=== PATIENT | male | born 1945 | race Caucasian/White ===

== ENCOUNTER → 2019-08-10 06:00 | Outpatient (REF) | payer MEDICARE, SELFPAY | LOC: ANHLAB 06:00 | PROVIDERS: PCP Family Medicine; Visit Provider Nurse Practitioner Family | DX: C44.529 Squamous cell carcinoma of skin of other part of trunk (principal) | CPT/HCPCS: 88305; 88331 ==

== ENCOUNTER 2023-01-29 10:36 | Day surgery (SDC) | payer MEDICARE, SELFPAY ==
[2023-01-26 14:05] VITALS: BMI 28.3
--- NOTE | 2023-01-29 08:26 | WPDANESEPPF ---
Anes - Initial Pre Proc Eval Procedure: Operation Date: 01/29/23 12:30 Proposed Procedures p Screening Colonoscopy - Alfredo Bess MD Date/Time: 01/29/23 08:26 Surgeon: Alfredo Bess MD Pre Op Diagnosis: Neoplasm Screening Patient Data Age: 77 Gender: M Height: 1.7 m Weight: 82 kg Allergies Allergy/AdvReac Type Severity Reaction Status Date / Time iodine Allergy Mild Rash Verified 01/29/23 11:13 penicillin G Allergy Mild Rash Verified 01/29/23 11:13 Penicillins Allergy Mild Rash Verified 01/29/23 11:13 escitalopram Allergy Unknown unknown Verified 01/26/23 13:43 lisinopril Allergy Unknown unknown Verified 01/26/23 13:42 Contrast Media Allergy Mild RASH/HOT Uncoded 01/26/23 13:43 Home Medications Medication Instructions Recorded Confirmed Type sildenafil 100 mg tablet (Viagra) 100 mg PO DAILY PRN sexual 02/26/22 01/29/23 Rx activity #30 tabs allopurinol 300 mg tablet 300 mg PO DAILY #90 tabs 08/28/22 01/29/23 Rx valsartan 160 1 tablet PO DAILY #90 tabs 08/28/22 01/29/23 Rx mg-hydrochlorothiazide 12.5 mg tablet (Diovan HCT) simvastatin 20 mg tablet 20 mg PO DAILY #90 tabs 11/02/22 01/29/23 Rx lorazepam 0.5 mg tablet 0.5 mg PO TID PRN anxiety #270 tabs 01/01/23 01/29/23 Rx metoprolol tartrate 25 mg tablet 25 mg PO .HS #90 tabs 01/01/23 01/29/23 Rx zolpidem 10 mg tablet 10 mg PO .once daily at hs PRN 01/01/23 01/29/23 Rx insomnia #90 tabs sodium,potassium,mag sulfates 17.5 See Rx Instructions PO .COMPLEX 01/23/23 01/29/23 Rx gram-3.13 gram-1.6 gram oral soln #354 mL (Suprep Bowel Prep Kit) multivitamin 1 tablet PO DAILY 01/26/23 01/29/23 History probenecid 500 mg-colchicine 0.5 1 tablet PO DAILY 01/26/23 01/29/23 History mg tablet Patient hx anesthesia problems: none Family hx anesthesia problems: none Results Review: All pre-operative results and documents have been reviewed as part of the pre-operative evaluation. COUNT INCLUDES THE [facility] Past Medical History Medical History Anxiety Erectile dysfunction H/O: gout HLD (hyperlipidemia) HTN (hypertension) Insomnia Kidney stone Family History Family History Mother Family history of neuropathy Social History Social History Smoking status: Never smoker Second hand tobacco smoke exposure: No Alcohol intake: never Alcohol use details: 2 drinks per month. Substance use: never Substance use type: does not use Lack of Transportation: No Lack of Food: Never True Current Housing: I Have Housing Concerned About Future Housing: No Difficulty Paying Gas/Electric Bills: No Difficulty Paying for Meds: No Currently Unemployed: No Education: High School Diploma/GED Difficulty w/ Childcare or Family Care: No Living arrangements: with family Occupation/Education: retired Gender identity (if verbalized by the patient): Male Sexual Orientation (if Verbalized by the Patient): Straight or Heterosexual Spiritual care concerns: No Agree to blood products: Yes Anes - Eval Final PreProcedure Day of Procedure 01/29/23 08:26 Patient weight: overweight Heart: regular rate and rhythm Lungs: clear to auscultation Airway: Mallampati scale class II Neurological: alert and oriented Last oral intake: >/= 8 hours ASA classification: II Emergent: no Anesthetic plan: proceed Anesthesia type and monitoring: general GIVS and standard monitoring Results Review: All pre-operative results and documents have been reviewed as part of the pre-operative evaluation. Informed Consent: The patient's anesthetic plan and its attendant risks and benefits were discussed with the patient/family/POA. Questions were solicited and answers provided to the satisfaction of the patient/family/POA.
[2023-01-29 11:15] VITALS: BP 180/72; PULSE 51; RESP 20; TEMP 36.7; O2SAT 99
[2023-01-29] MEDS: LACTATED RINGERS 1,000 ML 150 ML IV CONT (11:30)
--- NOTE | 2023-01-29 12:14 | PM.HPGS ---
History of Present Illness History of Present Illness Consent: Risks, benefits, and alternatives have been discussed and questions answered. Patient agrees to proceed with procedure. Chief complaint: Neoplasm Screening Narrative: Cortez Willis is a 77 year old male Presents for screening colonoscopy. Patient's current weight appetite and bowel movements are normal. Patient denies abdominal pain. He has had no bleeding. Family history noncontributory. Previous colonoscopy 25 years ago apparently was unremarkable. Review of Systems Review of Systems: Review of systems noncontributory. [facility] Past Medical History Medical History Anxiety Erectile dysfunction H/O: gout HLD (hyperlipidemia) HTN (hypertension) Insomnia Kidney stone Family History Family History Mother Family history of neuropathy Social History Social History Smoking status: Never smoker Second hand tobacco smoke exposure: No Alcohol intake: never Alcohol use details: 2 drinks per month. Substance use: never Substance use type: does not use Lack of Transportation: No Lack of Food: Never True Current Housing: I Have Housing Concerned About Future Housing: No Difficulty Paying Gas/Electric Bills: No Difficulty Paying for Meds: No Currently Unemployed: No Education: High School Diploma/GED Difficulty w/ Childcare or Family Care: No Living arrangements: with family Occupation/Education: retired Gender identity (if verbalized by the patient): Male Sexual Orientation (if Verbalized by the Patient): Straight or Heterosexual Spiritual care concerns: No Agree to blood products: Yes Meds Home Medications and Allergies Home Medications Medication Instructions Recorded Confirmed Type sildenafil 100 mg tablet (Viagra) 100 mg PO DAILY PRN sexual 02/26/22 01/29/23 Rx activity #30 tabs allopurinol 300 mg tablet 300 mg PO DAILY #90 tabs 08/28/22 01/29/23 Rx valsartan 160 1 tablet PO DAILY #90 tabs 08/28/22 01/29/23 Rx mg-hydrochlorothiazide 12.5 mg tablet (Diovan HCT) simvastatin 20 mg tablet 20 mg PO DAILY #90 tabs 11/02/22 01/29/23 Rx lorazepam 0.5 mg tablet 0.5 mg PO TID PRN anxiety #270 tabs 01/01/23 01/29/23 Rx metoprolol tartrate 25 mg tablet 25 mg PO .HS #90 tabs 01/01/23 01/29/23 Rx zolpidem 10 mg tablet 10 mg PO .once daily at hs PRN 01/01/23 01/29/23 Rx insomnia #90 tabs sodium,potassium,mag sulfates 17.5 See Rx Instructions PO .COMPLEX 01/23/23 01/29/23 Rx gram-3.13 gram-1.6 gram oral soln #354 mL (Suprep Bowel Prep Kit) multivitamin 1 tablet PO DAILY 01/26/23 01/29/23 History probenecid 500 mg-colchicine 0.5 1 tablet PO DAILY 01/26/23 01/29/23 History mg tablet Allergies Allergy/AdvReac Type Severity Reaction Status Date / Time iodine Allergy Mild Rash Verified 01/29/23 11:13 penicillin G Allergy Mild Rash Verified 01/29/23 11:13 Penicillins Allergy Mild Rash Verified 01/29/23 11:13 escitalopram Allergy Unknown unknown Verified 01/26/23 13:43 lisinopril Allergy Unknown unknown Verified 01/26/23 13:42 Contrast Media Allergy Mild RASH/HOT Uncoded 01/26/23 13:43 Vital Signs Vital Signs - 24 hr 01/29/23 11:15 Temperature 98.1 F Pulse Rate 51 L Respiratory Rate 20 Blood Pressure 180/72 H Pulse Oximetry 99 Oxygen Delivery Room Air Exam Narrative: Physical exam reveals patient to be alert. Vital signs stable. HEENT exam is unremarkable. Patient is anicteric. Lungs are clear to auscultation and percussion. Heart is without murmur or extra sounds. Abdomen bowel sounds are present soft nontender with no organomegaly. Digital external rectal exam is normal. Assessment and Plan Assessment and plan (1) Encounter for screening colonoscopy: Code(s): Z12.11 - Encounter for screening
[2023-01-29 13:14] VITALS: BP 95/53; PULSE 45; RESP 16; O2SAT 98
[2023-01-29 13:24] VITALS: BP 110/64; PULSE 45; RESP 16; O2SAT 100
[2023-01-29 13:34] VITALS: BP 136/63; PULSE 47; RESP 16; O2SAT 99
--- NOTE | 2023-01-29 13:58 | WPDANESPN ---
Anes - Prog Note Post-Op Date/Time: 01/29/23 13:58 Cardiovascular status: normal Respiratory status: normal Airway patency: baseline Mental status: baseline Post-Op hydration status: normal Vital Signs: Last Vital Signs Temp 36.7 C 01/29/23 11:15 Pulse 47 L 01/29/23 13:34 Resp 16 01/29/23 13:34 BP 136/63 01/29/23 13:34 Pulse Ox 99 01/29/23 13:34 O2 Del Method Room Air 01/29/23 13:34 Pain Score (VAS): 0 I/O: Intake & Output 01/28/23 01/29/23 01/29/23 23:59 07:59 15:59 Intake Total 650 Balance 650 Post-procedural complaints: none Patient Feedback: Patient satisfied with anesthetic care. Other Findings: Patient vital signs back to baseline. Patient denies nausea and vomiting. Patient's pain under control. Patient OK for discharge.
== END 2023-01-29 13:56 | disposition home or self-care (01) ==
PROVIDERS: PCP Family Medicine; Visit Provider Internal Medicine Gastroenterology
PROC: 0DJD8ZZ Inspection of Lower Intestinal Tract, Via Natural or Artificial Opening Endoscopic (ICD-10-PCS; CPT 45378; principal; 2023-01-29 12:30)
DX: Z12.11 Encounter for screening for malignant neoplasm of colon (principal)
CPT/HCPCS: 45378

== ENCOUNTER 2025-02-24 02:06 | Day surgery (SDC) | payer MEDICARE, SELFPAY ==
[2025-02-23 15:58] VITALS: BMI 28.2
[2025-02-24] VITALS (21 sets, daily range): BP systolic 118–179; BP diastolic 58–93; PULSE 44–80; RESP 12–20; TEMP 36.1; O2SAT 93–100; BMI 29.0
--- OUTSIDE RECORDS SUMMARY | 2025-02-24 02:09 | XMS_ITS | Clinical Summary ---
Author Organization [facility] Address [address] [address] Phone Care Team Providers Care Accounting Administrative Assistant Name Role Phone Clotilde Webb MD Primary Care Provider [phone] Allergies Active Allergy Reactions Criticality Noted Date Comments Iodine Unknown 02/07/2025 Penicillins Rash 02/07/2025 Medications simvastatin (ZOCOR) 20 MG Tablet Take 20 mg by mouth every evening. Active valsartan-hydro CHLOROthiazide (DIOVAN-HCT) 160-12.5 MG Tablet Take 1 Tablet by mouth daily. Active metoprolol Succinate (TOPROL-XL) 25 MG TABLET SR 24 HR Take 25 mg by mouth daily. Active colchicine-prob enecid 0.5-500 MG Tablet Take 1 Tablet by mouth daily. Active allopurinol (ZYLOPRIM) 300 MG Tablet Take 300 mg by mouth daily. Active zolpidem (AMBIEN) 10 MG Tablet Take 10 mg by mouth nightly as needed. Active LORazepam (Ativan) 0.5 MG Tablet Take 0.5 mg by mouth every 6 hours as needed. Active sildenafil citrate (VIAGRA) 100 MG Tablet Take 100 mg by mouth as needed. Active Encounters Date Type Department Care Team Description 02/07/2025 9:00 AM CDT - 02/07/2025 11:59 PM CDT Hospital Encounter [facility] Nuclear Medicine [address] [place] [address] Clotilde Webb MD Discharge Disposition: Discharged to home or Selfcare 02/07/2025 8:19 AM CDT - 02/07/2025 8:59 AM CDT Hospital Encounter [facility] Cardiology Stress [address] [place] [address] Clotilde Webb MD Discharge Disposition: Discharged to home or Selfcare 02/07/2025 8:15 AM CDT - 02/07/2025 8:18 AM CDT Hospital Encounter [facility] Nuclear Medicine [address] [place] [address] Clotilde Webb MD Discharge Disposition: Discharged to home or Selfcare 02/07/2025 8:00 AM CDT - 02/07/2025 8:14 AM CDT Hospital Encounter [facility] Nuclear Medicine [address] [place] [address] Clotilde Webb MD Discharge Disposition: Discharged to home or Selfcare 02/06/2025 Travel 01/26/2025 Transcribe Orders [facility] Central Scheduling [address] [place] [address] Clotilde Webb MD Chest pain, unspecified type (Primary Dx) 01/26/2025 Transcribe Orders [facility] Central Scheduling [address] [place] [address] Clotilde Gross MD Chest pain, unspecified type (Primary Dx) from Last 3 Months Social History Tobacco Use Types Packs/Day Years Used Date Smoking Tobacco: Never Assessed Sex and Gender Information Value Date Recorded Sex Assigned at Not on file Legal Sex Male 11:53 PM CDT Gender Identity Not on file Sexual Orientation Not on file Last Filed Vital Signs Vital Sign Reading Time Taken Comments Blood Pressure 114/50 02/07/2025 9:04 AM CDT Pulse 67 02/07/2025 9:04 AM CDT Temperature - - Respiratory Rate - - Oxygen Saturation - - Inhaled Oxygen Concentration - - Weight 83.5 kg (184 lb) 02/07/2025 9:19 AM CDT Height 170.2 cm (5' 7) 02/07/2025 9:19 AM CDT Body Mass Index 28.82 02/07/2025 9:19 AM CDT Plan of Treatment Health Maintenance Due Date Last Done Comments Hepatitis C Virus (HCV) Screening 1945 TdaP Immunization 1945 Pneumococcal Immunization (5 0+ years) (1 of 1 - PCV) 1997 Zoster Immunization (1 of 2) 1997 Respiratory Syncytial Virus (RSV) Immunization (Adult) (1 - 1-dose 75+ series) 2022 SARS-COV-2 Immunization (1 - 2023- season) 2024 Influenza Immunization (Seas on Ended) 2025 Hepatitis B Immunization Aged Out No longer eligible based on patient's age to complete this topic Human Papillomavirus (HPV) Immunization Aged Out No longer eligible b ased on patient's age to complete this topic Meningococcal Immunization (ACWY) Aged Out No longer eligible based on patient's age to complete this topic Rotavirus Immunization Aged Out No lo nger eligible based on patient's age to complete this topic Procedures Procedure Name Priority Date/Time Associated Diagnosis Comments NM CARD MULTI SPECT WITH WALL MOTION AND EJECTION FRACTION Routine 02/07/2025 9:29 AM CDT Chest pain, unspecified type ADULT CV STRESS TREADMILL W NUC MED Routine 02/07/2025 9:06 AM CDT Chest pain, unspecified type from Last 3 Months Results * NM CARD MULTI SPECT WITH WALL MOTION AND EJECTION FRACTION (02/07/2025 9:29 AM CDT) Anatomical Region Laterality Modality CARDIO N/A Nuclear Medicine 02/07/2025 12:2 6 PM CDT Impressions 02/07/2025 12:29 PM CDT IMPRESSION: Small area of mildly reduced perfusion in the mid inferolateral region of the left ventricle at stress with partial improvement at rest. While diaphragmatic attenuation artifact could be contributing, the partial reversibility is suspicious for ischemia. Normal left ventricular ejection fraction of 71 %. Normal wall motion. Narrative 02/07/2025 12:29 PM CDT EXAM DESCRIPTION: NM CARD MULTI SPECT WITH WALL MOTION AND EJECTION FRACTION REASON FOR STUDY: Chest pain and shortness of breath with exertion for few months. RADIOPHARMACEUTICAL: Rest: 11.9 mCi Tc-99m tetrofosmin Exercise: 34.8 mCi Tc-99m tetrofosmin Injection site: Left antecubital vein IV site COMPARISON: None TECHNIQUE: Standard myocardial perfusion SPECT images were obtained after resting tracer injection. Subsequently, a treadmill exercise tolerance test was performed. The patient exercised for 9 minutes and 0 seconds and achieved 88 % of the age predicted maximum heart rate. Standard myocardial perfusion images were obtained after tracer injection at peak exercise. FINDINGS: Image quality is adequate at rest and adequate at stress. Small area diminished perfusion in the mid inferolateral region of the left ventricle at stress with improved perfusion at rest. The left ventricular cavity size is normal . Gated tomographic images demonstrate normal wall motion and wall thickening with a left ventricular ejection fraction of 71 % poststress (normal >45%). THIS IS AN ELECTRONICALLY VERIFIED FINAL REPORT 02/07/2025 12:26 PM - Electronically signed by Noah Tanner M.D. LB: JACINTA Report ID: [id number] Reading Location: [id number] Procedure Note Noah Tanner MD - 02/07/2025 EXAM DESCRIPTION: LA CARD MULTI SPECT WITH WALL MOTION AND EJECTION FRACTION REASON FOR STUDY: Chest pain and shortness of breath with exertion for few months. RADIOPHARMACEUTICAL: Rest: 11.9 mCi Tc-99m tetrofosmin Exercise: 34.8 mCi Tc-99m tetrofosmin Injection site: Left antecubital vein IV site COMPARISON: None TECHNIQUE: Standard myocardial perfusion SPECT images were obtained after resting tracer injection. Subsequently, a treadmill exercise tolerance test was performed. The patient exercised for 9 minutes and 0 seconds and achieved 88 % of the age predicted maximum heart rate. Standard myocardial perfusion images were obtained after tracer injection at peak exercise. FINDINGS: Image quality is adequate at rest and adequate at stress. Small area diminished perfusion in the mid inferolateral region of the left ventricle at stress with improved perfusion at rest. The left ventricular cavity size is normal . Gated tomographic images demonstrate normal wall motion and wall thickening with a left ventricular ejection fraction of 71 % poststress (normal >45%). THIS IS AN ELECTRONICALLY VERIFIED FINAL REPORT 02/07/2025 12:26 PM - Electronically signed by Noha Tanner M.D. LB: JACINTA Report ID: [id number] Reading Location: [id number] IMPRESSION: Small area of mildly reduced perfusion in the mid inferolateral region of the left ventricle at stress with partial improvement at rest. While diaphragmatic attenuation artifact could be contributing, the partial reversibility is suspicious for ischemia. Normal left ventricular ejection fraction of 71 %. Normal wall motion. us Clotilde Webb MD IMG NM CARDIAC NI ORDERABLES Dylan al Result * ADULT CV STRESS TREADMILL W NUC MED (02/07/2025 9:06 AM CDT) Anatomical Region Laterality Modality CARDIO N/A Electrocardiogra phy Narrative 02/07/2025 9:52 AM CDT Non-Imaging Stress Test Patient Name MIKE Bejarano 1945 Patient ID (UPI) [id number] Study Date02/07/2025 Type of Study: Non-Imaging Stress Test: Exercise. Conclusions Summary - Stress induced ischemia as EKG criteria (ST elevation of lead II, III aVF, V3-V6 with ST depression of Lead I and aVL) (peak heart rate of 127 BPM, 88% of the maximal age predicted heart rate, METs: 11.5, total time of Simón protocol was 9 min 37 seconds). - Nuclear images are reported separately. Rest ECG Normal sinus rhythm. Normal ST segment response without evidence of ischemia. No ectopy or arrhythmia. Standing HR:59 bpm Results ECG Sinus tachycardia. Significant ST elevation in leads II, III, aVF, V3-V6 with ST depression of Lead I and aVL suggestive of ischemia. Stress Stress Type - Protocol:Exercise - Simón Peak HR: 127 bpm RPP: Peak BP: 159/75 mmHg METS:11.5 METS Predicted HR: 143 bpm % of predicted HR: 89 Test Duration: 9:37 min Reason for Termination: Fatigue Stress Protocol:Exercise - Simón +--------+--------+-----+---+----+ +-----+--------+---+--------+--+--- -+--- ---+ !Stage # !Stage !Time !VO2!Work!Speed/Grade!Heart!Blood !RPE!Pain !CP!Pain!Pain ! ! !Name ! ! ! ! !Rate !Pressure! !Location! !Type!Action! +--------+--------+-----+---+----+ +-----+--------+---+--------+--+--- -+--- ---+ !Rest !PRETEST !16:17! !1.7 !1.0/0.0 !59 !136/83 ! ! ! ! ! ! ! !WARM-UP ! ! ! ! ! ! ! ! ! ! ! ! +--------+--------+-----+---+----+ +-----+--------+---+--------+--+--- -+--- ---+ !0.0 !EXERCISE!03:00! !4.6 !1.7/10.0 !78 ! ! ! ! ! ! ! ! !STAGE 1 ! ! ! ! ! ! ! ! ! ! ! ! +--------+--------+-----+---+----+ +-----+--------+---+--------+--+--- -+--- ---+ !1.0 !EXERCISE!06:00! !7.0 !2.5/12.0 !94 !159/75 ! ! ! ! ! ! ! !STAGE 2 ! ! ! ! ! ! ! ! ! ! ! ! +--------+--------+-----+---+----+ +-----+--------+---+--------+--+--- -+--- ---+ !2.0 !EXERCISE!09:00! !10.1!3.4/14.0 !118 ! ! ! ! ! ! ! ! !STAGE 3 ! ! ! ! ! ! ! ! ! ! ! ! +--------+--------+-----+---+----+ +-----+--------+---+--------+--+--- -+--- ---+ !3.0 !EXERCISE!09:27! !11.5!4.2/16.0 !127 ! ! ! ! ! ! ! ! !STAGE 4 ! ! ! ! ! ! ! ! ! ! ! ! +--------+--------+-----+---+----+ +-----+--------+---+--------+--+--- -+--- ---+ !4.0 !MANUAL !09:37! !11.3!3.1/15.3 !127 ! ! ! ! ! ! ! ! !STAGE 5 ! ! ! ! ! ! ! ! ! ! ! ! +--------+--------+-----+---+----+ +-----+--------+---+--------+--+--- -+--- ---+ !Recovery!RECOVERY!06:32! !1.0 !0.0/0.0 !66 !114/50 ! ! ! ! ! ! +--------+--------+-----+---+----+ +-----+--------+---+--------+--+--- -+--- ---+ Demographics Age 79 Gender Male Race Height Weight BMI Stress Vice President Of Academic Affairs Nurse Interpreting Physician Sathish Jaime Referring Physician Procedure Note Yeni Bower MD - 02/07/2025 Non-Imaging Stress Test Patient Name MIKE LAMBERT Carlee Arzola 1945 Patient ID (UPI) [id number] Study Date02/07/2025 Type of Study: Non-Imaging Stress Test: Exercise. Conclusions Summary - Stress induced ischemia as EKG criteria (ST elevation of lead II, III aVF, V3-V6 with ST depression of Lead I and aVL) (peak heart rate of 127 BPM, 88% of the maximal age predicted heart rate, METs: 11.5, total time of Simón protocol was 9 min 37 seconds). - Nuclear images are reported separately. Rest ECG Normal sinus rhythm. Normal ST segment response without evidence of ischemia. No ectopy or arrhythmia. Standing HR:59 bpm Results ECG Sinus tachycardia. Significant ST elevation in leads II, III, aVF, V3-V6 with ST depression of Lead I and aVL suggestive of ischemia. Stress Stress Type - Protocol:Exercise - Simón Peak HR: 127 bpm [id number] Peak BP: 159/75 mmHg METS:11.5 METS Predicted HR: 143 bpm % of predicted HR: 89 Test Duration: 9:37 min Reason for Termination: Fatigue Stress Protocol:Exercise - Simón +--------+--------+-----+---+----+ +-----+--------+---+--------+--+--- -+--- ---+ !Stage # !Stage !Time !VO2!Work!Speed/Grade!Heart!Blood !RPE!Pain!CP!Pain!Pain ! ! !Name ! ! ! ! !Rate !Pressure! !Location!!Type!Action! +--------+--------+-----+---+----+ +-----+--------+---+--------+--+--- -+--- ---+ !Rest !PRETEST !16:17! !1.7 !1.0/0.0 !59 !136/83 ! ! !! ! ! ! !WARM-UP ! ! ! ! ! ! ! ! !! ! ! +--------+--------+-----+---+----+ +-----+--------+---+--------+--+--- -+--- ---+ !0.0 !EXERCISE!03:00! !4.6 !1.7/10.0 !78 ! ! ! !! ! ! ! !STAGE 1 ! ! ! ! ! ! ! ! !! ! ! +--------+--------+-----+---+----+ +-----+--------+---+--------+--+--- -+--- ---+ !1.0 !EXERCISE!06:00! !7.0 !2.5/12.0 !94 !159/75 ! ! !! ! ! ! !STAGE 2 ! ! ! ! ! ! ! ! !! ! ! +--------+--------+-----+---+----+ +-----+--------+---+--------+--+--- -+--- ---+ !2.0 !EXERCISE!09:00! !10.1!3.4/14.0 !118 ! ! ! !! ! ! ! !STAGE 3 ! ! ! ! ! ! ! ! !! ! ! +--------+--------+-----+---+----+ +-----+--------+---+--------+--+--- -+--- ---+ !3.0 !EXERCISE!09:27! !11.5!4.2/16.0 !127 ! ! ! !! ! ! ! !STAGE 4 ! ! ! ! ! ! ! ! !! ! ! +--------+--------+-----+---+----+ +-----+--------+---+--------+--+--- -+--- ---+ !4.0 !MANUAL !09:37! !11.3!3.1/15.3 !127 ! ! ! !! ! ! ! !STAGE 5 ! ! ! ! ! ! ! ! !! ! ! +--------+--------+-----+---+----+ +-----+--------+---+--------+--+--- -+--- ---+ !Recovery!RECOVERY!06:32! !1.0 !0.0/0.0 !66 !114/50 ! ! !! ! ! +--------+--------+-----+---+----+ +-----+--------+---+--------+--+--- -+--- ---+ Demographics Age 79 Gender Male Race Height Weight BMI Stress Vice President Of Academic Affairs Nurse Interpreting Physician Sathish Jaime Referring Physician us Clotilde Webb MD IMG STRESS Final Result from Last 3 Months [facility] Care Teams Accounting Administrative Assistant Relationship Specialty Start Date End Date Clotilde Webb MD [address] [place] [address] PCP - General Family Medicine 01/26/25
--- OUTSIDE RECORDS SUMMARY | 2025-02-24 02:09 | XMS_ITS ---
Author Organization 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 Past Treatment and Therapy Plans No past plan information found. Lifetime Dose Tracking * Chemical Lifetime Dose Automatic Entry Manual Entr y Dose Length Product 512 mGy-cm 512 mGy-cm 0 mGy-cm
--- OUTSIDE RECORDS SUMMARY | 2025-02-24 02:09 | XMS_ITS | Referral Summary ---
Author Organization [address] Address [address] [place] [id number] Care Team Providers Care Metal Fence Erector Name Role Phone Clotilde Webb MD Primary Care Provider [phone] Encounters Date Type Department Care Team Description 02/23/2025 Telephone [facility] Cardiology [address] [facility] [address] [place] [phone] Fredi Olguin MD 02/20/2025 Telephone [facility] Medical [facility] Cardiology [address] [facility] [address] [place] [address] Fredi Olguin MD 02/20/2025 8:30 AM CDT Office Visit [facility] Cardiology at [address] [place] [address] Fredi Olguin MD Hyperlipidemia LDL goal <70 (Primary Dx); Abnormal stress test; Essential hypertension; Angina pectoris, unstable (HCC) 02/10/2025 Telephone [facility] Medical [facility] Cardiology [address] [facility] [address] [place] [phone] Fredi Olguin MD from Last 3 Months Allergies Active Allergy Reactions Criticality Noted Date Comments Iodine Unknown 02/07/2025 Penicillins Rash Medium 12/26/2024 Medications valsartan-hydro CHLOROthiazide (DIOVAN-HCT) 160-12.5 mg per tablet Take 1 tablet by mouth daily 03/16/202 5 Active metoprolol tartrate (LOPRESSOR) 25 mg immediate release tablet Take 1 tablet (25 mg total) by mouth daily 5 Active probenecid-colc hicine 500-0.5 mg per tablet Take 1 tablet by mouth daily 4 Active allopurinoL (ZYLOPRIM) 300 mg tablet Take 1 tablet (300 mg total) by mouth daily 5 Active zolpidem (AMBIEN) 10 mg tablet Take 1 tablet (10 mg total) by mouth nightly as needed 5 Active LORazepam (ATIVAN) 0.5 mg tablet Take 1 tablet (0.5 mg total) by mouth nightly as needed 4 Active aspirin 325 mg tablet Take 1 tablet (325 mg total) by mouth daily Active atorvastatin (LIPITOR) 40 mg tabletIndicatio ns:Hyperlipidem ia LDL goal <70,Angina pectoris, unstable (HCC) Take 1 tablet (40 mg total) by mouth daily 90 tablet 3 5 02/21/20 26 Active nitroglycerin (NITROSTAT) 0.4 mg SL tabletIndicatio ns:acute episode of anginal pain Place 1 tablet (0.4 mg total) under the tongue every 5 (five) minutes as needed for chest pain May repeat dose q 5 min, up to 3 doses total 50 tablet 1 5 02/21/20 26 Active predniSONE (DELTASONE) 50 mg tablet 1 tablet (50 mg) 13 hours prior to procedure, 1 tablet (50 mg) 7 hours prior to procedure, and 1 tablet (50 mg) 1 hour prior to procedure. 3 tablet 5 Active simvastatin (ZOCOR) 20 mg tablet Take 1 tablet (20 mg total) by mouth daily 5 02/21/20 25 Discontinu ed(Therapy completed) sildenafiL (VIAGRA) 100 mg tablet Take 1 tablet (100 mg total) by mouth as needed 02/21/20 25 Discontinu ed(Therapy completed) Active Problems Problem Noted Date Diagnosed Date Angina pectoris, unstable 02/20/2025 Abnormal stress test 02/20/2025 Hyperlipidemia LDL goal <70 02/20/2025 Essential hypertension 02/20/2025 Social History Tobacco Use Types Packs/Day Years Used Date Smoking Tobacco: Never Smokeless Tobacco: Never Tobacco Cessation:Counseling Given: Not Answered Sex and Gender Information Value Date Recorded Sex Assigned at Not on file 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 Gender Identity Not on file Sexual Orientation Not on file Last Filed Vital Signs Vital Sign Reading Time Taken Comments Blood Pressure 148/80 02/20/2025 8:20 AM CDT Pulse 57 02/20/2025 8:20 AM CDT Temperature - - Respiratory Rate - - Oxygen Saturation 95% 02/20/2025 8:20 AM CDT Inhaled Oxygen Concentration - - Weight 85.7 kg (189 lb) 02/20/2025 8:20 AM CDT Height 170.2 cm (5' 7) 02/20/2025 8:20 AM CDT Body Mass Index 29.6 02/20/2025 8:20 AM CDT Plan of Treatment Not on file Procedures Procedure Name Priority Date/Time Associated Diagnosis Comments ELECTROCARDIOGRAM REPORT Routine 025 2:12 PM CDT Abnormal stress test POCT LIPID PANEL Routine 02/20/2025 8:28 AM CDT Hyperlipidemia LDL goal <70 from Last 3 Months Results * Electrocardiogram Report (02/20/2025 2:12 PM CDT) Fredi Olguin MD ECG ORDERABLES Final Res ult * (ABNORMAL) POCT lipid panel (02/20/2025 8:28 AM CDT) Cholesterol, POC 134 <200 MG/DL HDL, POC 15(A) >=40 mg/dL Triglycerides, POC 120 <=149 mg/dL LDL Cholesterol POC 95 <=129 mg/dL Chol/HDL Ratio, POC 8.9 NONE Non-HDL Cholesterol, POC 119 NONE mg/dL Cholesterol Total, POC 134 30 - 199 mg/dL Capillary blood 02/20/2025 8 :28 AM CDT Fredi Olguin MD POINT OF CARE TEST ORDERA BLES Final Result from Last 3 Months Insurance [facility] MEDICARE [employer] [facility] MEDICARE Address: [address] [phone] Care Teams Metal Fence Erector Relationship Specialty Start Date End Date Clotilde Webb MD [address] [address] PCP - General Family Medicine 02/01/25
--- OUTSIDE RECORDS SUMMARY | 2025-02-24 02:09 | XMS_ITS | Encounter Summary ---
Author Organization [facility] Address [address] [place] [address] Care Team Providers Care First Mate Name Role Phone Clotilde Webb MD Primary Care Provider [phone] Reason for Referral * Procedure (Routine) - Closed Specialty Diagnoses / Procedures Referred By Contac t Referred To Contact Cardiology Diagnoses Angina pectoris, unstable (HCC) Abnormal stress test Fredi Olguin MD [address] [facility] [address] [place] [address] Phone: tel: fax: [facility] Medical [facility] Cardiology [address] [facility] [address] [place] [phone] Phone: tel: fax: Referral ID Status Reason Start Date Expiration Date V isits Requested Visits Authorized [id number] Closed Specialty Services Required 02/20/2025 04/06/2025 1 1 Question Answer Please select the performing region: [facility] [[id number]] Please select the performing department: [facility] [[id number]] # of visits: 1 Comments PROCEDURE/TEST ORDERED: [facility] LOCATION: DATE OF SERVICE: 02/24 INSURANCE: [facility] medicare DIAGNOSIS:CP, EKG changes ORDERING PROVIDER: JENNI, scheduled with [facility] ADDITIONAL DETAILS: Encounter Details Date Type Department Care Team ([facility] st Contact Info) Description 02/20/2025 Telephone [facility] Medical [facility] Cardiology [address] [place] [address] Fredi Olguin MD [address] [place] [id number] Social History Tobacco Use Types Packs/Day Years Used Date Smoking Tobacco: Never Smokeless Tobacco: Never Sex and Gender Information Value Date Recorded Sex Assigned at Not on file 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 3 tablet 02/20/2025 documented in this encounter Miscellaneous Notes * Telephone Encounter - Thea Gutiérrez - 02/23/2025 3:38 PM CDT Haven from [place] labor relations specialist stated pt has a dye allergy and wanted to know if pt was given pre meds for cath scheduled tomorrow. I let her know that according to Haven Gonzalez on 02/20 - Pt given contrast allergy prophylaxis schedule, prescription sent to pharmacy. * Telephone Encounter - Caitlin Hoyt - 02/20/2025 2:23 PM CDT [facility] is approved. Pt is good to go. * Telephone Encounter - Teagan Dumont RN - 02/20/2025 11:14 AM CDT Pt scheduled for [facility] at with [facility] on 02/24 at 1000. Instructions reviewed with pt, written instructions provided. Pt verbalizes understanding. Advised to call with any questions or concerns. Will forward to ROSITA and JENNI as FYI. [employer] working on insurance authorization. Pt given contrast allergy prophylaxis schedule, prescription sent to pharmacy. documented in this encounter Plan of Treatment Scheduled Referrals Name Type Priority Associated Diagnoses Order Schedule Ambulatory referral to Cardiology Outpatient Referral Routine Angina pectoris, unstable (HCC) Abnormal stress test 1 Occurrences starting 02/20/2025 until 02/20/2026 documented as of this encounter Visit Diagnoses Diagnosis Angina pectoris, unstable (HCC)- Primary Intermediate coronary syndrome Abnormal stress test Other nonspecific abnormal cardiovascular system function study documented in this encounter Care Teams First Mate Relationship Specialty Start Date End Date Clotilde Webb MD [address] [place] [address] PCP - General Family Medicine 02/01/25 documented as of this encounter
--- OUTSIDE RECORDS SUMMARY | 2025-02-24 02:09 | XMS_ITS | Encounter Summary ---
Author Organization [facility] Address [address] [place] [address] Care Team Providers Care Fund Raiser Name Role Phone Clotilde Webb MD Primary Care Provider [phone] Encounter Details Date Type Department Care Team (Late st Contact Info) Description 02/23/2025 Telephone [facility] Cardiology [address] [place] [address] Fredi Olguin MD [address] [facility] [address] [place] [address] Social History Tobacco Use Types Packs/Day Years Used Date Smoking Tobacco: Never Smokeless Tobacco: Never Sex and Gender Information Value Date Recorded Sex Assigned at Not on file 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 * Telephone Encounter - Najma Albarran - 02/23/2025 1:21 PM CDT Noé from the [facility] called in regards to the patient's heart Cath tomorrow . Please call back at [phone] documented in this encounter Plan of Treatment Not on file documented as of this encounter Visit Diagnoses Not on filedocumented in this encounter Care Teams Fund Raiser Relationship Specialty Start Date End Date Clotilde Webb MD [address] [facility] [place], [place] [id number] PCP - General Family Medicine 02/01/25 documented as of this encounter
--- OUTSIDE RECORDS SUMMARY | 2025-02-24 02:09 | XMS_ITS | Clinical Summary ---
Author Organization [facility] Address [address] [facility] [place] [address] Care Team Providers Care Wringer Machine Operator Name Role Phone Clotilde Webb MD Primary Care Provider [phone] Source Comments [facility],non-owned Affiliates and Associated Physician Practices is amultiple site organization consisting of ambulatory clinics and hospital sitesin [place], [place], [place]. This disclosure is being madepursuant to the Care Everywhere program and may not contain all information available regarding this patient. Last updated 18.[facility] Allergies Active Allergy Reactions Criticality Noted Date Comments Contrast-Iodinated Agents For Ct/Other Other 12/26/2024 Cold sweats Penicillins Rash Medium 12/26/2024 Medications * Be aware that medications may not be up to date on this document. Alwaysverify current medications with the patient. valsartan-hydro CHLOROthiazide (Diovan HCT) 160-12.5 MG tablet Take 1 (one) tablet by mouth once daily 11/27/2024 Active simvastatin (Zocor) 20 MG tablet Take 1 (one) tablet by mouth once daily 11/27/2024 Active metoprolol tartrate IR (Lopressor) 25 MG tablet Take 1 (one) tablet by mouth once daily 11/27/2024 Active LORazepam (Ativan) 0.5 MG tablet Take 1 (one) tablet by mouth nightly as needed for Anxiety 05/17/2024 Active doxycycline hyclate 100 MG tablet Take 1 (one) tablet by mouth 2 times daily with morning and evening meal 12/22/2024 Active colchicine-prob enecid (Col-Benemid) 0.5-500 MG tablet Take 1 (one) tablet by mouth once daily 08/22/2024 Active allopurinol (Zyloprim) 300 MG tablet Take 1 (one) tablet by mouth once daily 11/27/2024 Active zolpidem (Ambien) 10 MG tablet Take 1 (one) tablet by mouth nightly as needed for Insomnia 09/21/2024 Active aspirin (Aspirin) 325 MG tablet Take 1 (one) tablet by mouth once daily 02/08/2025 Active atorvastatin (Lipitor) 40 MG tablet Take 1 (one) tablet by mouth once daily 02/20/2025 02/21/20 26 Active nitroGLYCERIN (Nitrostat) 0.4 MG tablet Dissolve 1 (one) tablet under the tongue as needed 02/20/2025 02/21/20 26 Active sildenafil (Viagra) 100 MG tablet Take 1 (one) tablet by mouth as needed Active predniSONE (Deltasone) 50 MG tablet Take 1 (one) tablet by mouth once 02/20/2025 Active Active Problems Problem Noted Date Diagnosed Date 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 Encounters Date Type Department Care Team Description 02/22/2025 3:30 PM CDT Office Visit [facility] - ENT [address] [place] [phone] Jose Wright MD 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 (Primary Dx) 02/22/2025 Travel 02/16/2025 6:38 AM CDT - 02/16/2025 11:59 PM CDT Hospital Encounter [facility] [address] [place] [address] Jose Wright MD Discharge Disposition: Home or Self Care 02/16/2025 6:31 AM CDT - 02/16/2025 6:37 AM CDT Hospital Encounter [facility] [address] [place] [address] Jose Wright MD Discharge Disposition: Home or Self Care 02/03/2025 1:30 PM CDT Office Visit [facility] - ENT [address] [place] [phone] Jose Wright MD Skin cancer (Primary Dx); 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 02/03/2025 Travel 01/19/2025 Orders Only [facility] - [facility]NT [address], [address] [phone] Clifford Garcia MD 01/18/2025 Telephone [facility] - ENT [address] [place] [phone] Jose Wright MD Referral 01/16/2025 3:00 PM CDT Office Visit [facility] - ENT [address], [facility] [address] [place] [address] James Jimenez MD Hematoma (Primary Dx) 01/16/2025 Travel 01/10/2025 Telephone [facility] - ENT [address], [address] [phone] James Jimenez MD [facility] 01/09/2025 2:32 PM CDT - 01/09/2025 11:59 PM CDT Hospital Encounter [facility] [address] [place] [address] James Jimenez MD Discharge Disposition: Home or Self Care 12/26/2024 8:30 AM CDT Office Visit [facility] - ENT [address] , [address] [phone] James Jimenez MD Neoplasm of uncertain behavior (Primary Dx) from Last 3 Months Social History Tobacco Use Types Packs/Day Years Used Date Smoking Tobacco: Never Smokeless Tobacco: Never Sex and Gender Information Value Date Recorded Sex Assigned at Not on file Legal Sex Male 4:15 AM CDT Gender Identity Not on file Sexual Orientation Not on file Last Filed Vital Signs Vital Sign Reading Time Taken Comments Blood Pressure 125/75 02/22/2025 3:22 PM CDT Pulse 80 02/22/2025 3:22 PM CDT Temperature - - Respiratory Rate - - Oxygen Saturation 97% 12/26/2024 8:17 AM CDT Inhaled Oxygen Concentration - - Weight 85.7 kg (189 lb) 02/22/2025 3:22 PM CDT Height 170.2 cm (5' 7) 02/22/2025 3:22 PM CDT Body Mass Index 29.6 02/22/2025 3:22 PM CDT Plan of Treatment Health Maintenance Due Date Last Done Comments HEPATITIS C SCREENING [birth year]31/1963 DTAP/TDAP/TD VACCINES (1 - Tdap) 1966 PNEUMOCOCCAL VACCINE 50+ (1 of 1 - PCV) 1997 ZOSTER VACCINE (1 of 2) 1997 Respiratory Syncytial Virus (RSV) Vaccine Pt: or over 60 yrs (1 - 1-dose 75+ series) 2022 COVID-19 VACCINE ( - 2023-2 5 season) 2024 DEPRESSION SCREENING 09/14/2024 MEDICARE AWV CALENDAR YEAR 2024 INFLUENZA VACCINE (Season Ended) 2025 HEPATITIS B VACCINE Aged Out No longe r eligible based on patient's age to complete this topic HIB VACCINE Aged Out No longer eligi ble based on patient's age to complete this topic HPV VACCINE Aged Out No longer eligi ble based on patient's age to complete this topic MENINGOCOCCAL (Group B) VACC INE SHARED DECISION-MAKING Aged Out No longer eligibl e based on patient's age to complete this topic MENINGOCOCCAL GROUPS A/C/Y/W VACCINE Aged Out No longer eligible b ased on patient's age to complete this topic Procedures Procedure Name Priority Date/Time Associated Diagnosis Comments PET CT SKULL TO MID THIGH Routine 02/16/2025 8:07 AM CDT Skin cancer GLUCOSE SCREEN - POCT (IP) H STAT 02/16/2025 6:40 AM CDT MT DRAIN SKIN ABSCESS SIMPLE Routine 01/16/2025 3:54 PM CDT Hematoma PATHOLOGY TISSUE EXAM (STL) Routine 01/09/2025 2:52 PM CDT Ear lesion from Last 3 Months Results * PET CT Skull To Mid Thigh (02/16/2025 8:07 AM CDT) Anatomical Region Laterality Modality Head, Lower Extremity Positron E mission Tomography (PET) 02/16/2025 8:27 AM CDT Impressions 02/16/2025 11:04 AM CDT IMPRESSION: 1. Area of focal intense FDG uptake noted posterior to the left external auditory canal compatible with patient's biopsy-proven history of squamous cell carcinoma. There is increased FDG uptake that extends posteriorly towards the left parotid gland, which may represent extension of tumor. 2. No FDG avid cervical lymphadenopathy or evidence of distant metastatic disease. 3. Area of increased focal uptake noted in the sella which is indeterminate but may represent a pituitary adenoma. Further evaluation with MRI can be performed if clinically warranted. Report dictated by Emmanuel Quintero MD(president sales and marketing). > Dictated by Emmanuel Quintero MD (Harvest Contractor) 02/16/2025 8:27 AM IBairon DO have personally reviewed and interpreted this examination/study. > Interpreting Provider: Bairon Salomon DO on 02/16/2025 11:04 AM Narrative 02/16/2025 11:04 AM CDT PROCEDURE: PET CT SKULL TO MID THIGH DATE/TIME OF EXAM: 02/16/2025 8:10 AM CLINICAL INFORMATION: None relevant/not provided if blank. Indication: C44.90: Skin cancer COMPARISON: None. 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 Evaluate for initial treatment strategy. TECHNIQUE: 8.67 mCi of F-18 FDG by IV in the left antecubital fossa. PET/CT image acquisition from top of the head to the mid thigh after approximately 60 minutes post-injection with the CT being low-dose, non-contrast. No separate report for the CT was used for attenuation correction and anatomic localization. Blood glucose level at the time of injection was 112 mg/dl. Patient's BMI is 29.44 kg/m . FINDINGS: For reference, SUVmax of liver is 3.7. Head and neck: There is physiological FDG activity throughout the brain parenchyma. There is an area of increased intense FDG uptake posterior to the left external auditory canal measuring up to 5.0 SUV max. There is additional increased FDG uptake noted in inferiorly toward the left parotid gland measuring up to 2.5 SUV max. There is increased FDG uptake noted in the sella with SUV max of 7.9. No hypermetabolic or enlarged cervical lymph node is identified. The carotid siphons are atherosclerotic. Chest: Scattered subsegmental atelectasis is noted throughout the lungs. No pleural effusion or focal pleural thickening is identified. There is no evidence of pneumothorax. No suspicious hypermetabolic pulmonary nodule is identified. The heart size is normal. No pericardial effusion is present. No hypermetabolic or enlarged mediastinal, axillary, or supraclavicular lymphadenopathy is seen. The thoracic aorta and its branches are atherosclerotic. There are atherosclerotic calcifications of the coronary arteries. Abdomen and pelvis: Within the limitations of a noncontrast examination, the visceral abdominal organs are unremarkable. There is normal FDG activity throughout the small and large bowel. No free air or free fluid is identified within the abdomen. There is no hypermetabolic or enlarged abdominal or pelvic lymphadenopathy. Atherosclerotic calcification of the abdominal aorta and its branches is identified. Colonic diverticulosis without evidence of diverticulitis. Musculoskeletal: No suspicious lytic or blastic lesions are identified. No abnormal FDG uptake is seen within the osseous structures. Procedure Note Bairon Salomon, DO - 02/16/2025 PROCEDURE: PET CT SKULL TO MID THIGH DATE/TIME OF EXAM: 02/16/2025 8:10 AM CLINICAL INFORMATION: None relevant/not provided if blank. Indication: C44.90: Skin cancer COMPARISON: None. 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 Evaluate for initial treatment strategy. TECHNIQUE: 8.67 mCi of F-18 FDG by IV in the left antecubital fossa. PET/CT image acquisition from top of the head to the mid thigh after approximately 60 minutes post-injection with the CT being low-dose, non-contrast. No separate report for the CT was used for attenuation correction and anatomic localization. Blood glucose level at the time of injection was 112 mg/dl. Patient's BMI is 29.44 kg/m . FINDINGS: For reference, SUVmax of liver is 3.7. Head and neck: There is physiological FDG activity throughout the brain parenchyma.There is an area of increased intense FDG uptake posterior to the leftexternal auditory canal measuring up to 5.0 SUV max. There is additionalincreased FDG uptake noted in inferiorly toward the left parotid gland measuringup to 2.5 SUV max. There is increased FDG uptake noted in the sella withSUV max of 7.9. No hypermetabolic or enlarged cervical lymph node is identified. The carotid siphons are atherosclerotic. Chest: Scattered subsegmental atelectasis is noted throughout the lungs. No pleural effusion or focal pleural thickening is identified. There is no evidence of pneumothorax. No suspicious hypermetabolic pulmonary noduleis identified. The heart size is normal. No pericardial effusion is present. No hypermetabolic or enlarged mediastinal, axillary, or supraclavicular lymphadenopathy is seen. The thoracic aorta and its branches are atherosclerotic. There are atherosclerotic calcifications of thecoronary arteries. Abdomen and pelvis: Within the limitations of a noncontrast examination, the visceralabdominal organs are unremarkable. There is normal FDG activity throughout thesmall and large bowel. No free air or free fluid is identified within the abdomen. There is no hypermetabolic or enlarged abdominal or pelvic lymphadenopathy. Atherosclerotic calcification of the abdominal aorta and its branches is identified. Colonic diverticulosis without evidence of diverticulitis. Musculoskeletal: No suspicious lytic or blastic lesions are identified. No abnormal FDG uptake is seen within the osseous structures. IMPRESSION: 1. Area of focal intense FDG uptake noted posterior to the left external auditory canal compatible with patient's biopsy-proven history ofsquamous cell carcinoma. There is increased FDG uptake that extends posteriorly towards the left parotid gland, which may represent extension of tumor. 2. No FDG avid cervical lymphadenopathy or evidence of distantmetastatic disease. 3. Area of increased focal uptake noted in the sella which isindeterminate but may represent a pituitary adenoma. Further evaluation with MRI canbe performed if clinically warranted. Report dictated by Emmanuel Quintero MD(president sales and marketing). > Dictated by Emmanuel Quintero MD (Harvest Contractor) 02/16/2025 8:27 AM Bairon Shaw DO have personally reviewed and interpreted this examination/study. > Interpreting Provider: Bairon Salomon DO on 02/16/2025 11:04 AM Jose Wright MD NM ORDERABLES Final Result * (ABNORMAL) GLUCOSE SCREEN - POCT (IP) [facility] (02/16/2025 6:40 AM CDT) Glucose WB/POC 112(A) 70 - 99 mg/dL [facility] Blood BLOOD SPECIMEN / Unknown 02/16/2025 6:40 AM CDT Jose Wright MD LAB - POINT OF CARE ORDERABLE S Final Result [facility] [address] [place] [address], [facility] [phone] * MT DRAIN SKIN ABSCESS SIMPLE (01/16/2025 3:54 PM CDT) Narrative James Jimenez MD - 01/16/2025 3:54 PM CDT James Jimenez MD 01/16/2025 3:58 PM Procedure- drainage of left postauricular hematoma Informed written consent obtained, discussed pain, discomfort, bleeding, swelling, infection. The skin over the left postauricular incision was cleaned with alcohol. An 18g needle was inserted into the pocket and roughly 1cc of dark bloody fluid was withdrawn. No fresh blood. The area was flatter after aspiration. James Jimenez MD PROCEDURE/MINOR SURGICAL ORDERA BLES Final Result * PATHOLOGY TISSUE EXAM (STL) (01/09/2025 2:52 PM CDT) Pathologist [facility] Case Report Surgical Pathology Report Case: [id number] Authorizing Provider: James Jimenez MD Collected: 01/09/2025 02:52 PM Ordering Location: [facility] Received: 01/10/2025 09:05 AM Pathologist: Regine Cheney MD Specimen: Mass, left ear mass 01/12/2025 2:54 PM CDT [facility] Final Diagnosis Ear lesion, left, excision: Keratinizing squamous cell carcinoma, well to moderately differentiated, focally involving the adjacent cartilage, and extending to the resection margins. 01/12/2025 2:54 PM CDT [facility] at 1454 CDT Gross Description Received in formalin labeled with the patient's name and left ear lesion is a 1.5 x 1 x 0.6 cm callaway unoriented oval portion of skin. The resection margin is inked green. The specimen is sectioned to show a 0.7 cm in greatest dimension probable cyst. Quality Assurance Group Leader sections including the entire probable cyst are submitted in A1. The remainder of the specimen is submitted in A2. 01/12/2025 2:54 PM CDT [facility] Microscopic Description The lesional cells are highlighted by p40, further confirming the morphologic interpretation. 01/12/2025 2:54 PM T [facility] Disclaimer All histochemical and/or immunohistochemical results are interpreted with controls that demonstrate appropriate staining reactions before reporting results. Note on use of immunocytochemistry reagents: This test was developed and its performance characteristic determined by [facility], Department of Laboratory Medicine. It has not been cleared or approved by the U.S. Food and Drug Administration (FDA). The FDA has determined that such clearance or approval is not necessary. The test is used for clinical purpose. It should not be regarded as investigational or for research. This laboratory is certified to perform high complexity testing. The performance characteristics of the IHC/EH assays have been validated on formalin-fixed paraffin embedded tissues only. The assays have not been validated on decalcified tissues. Results should be interpreted with caution. 01/12/2025 2:54 PM CDT [facility] Embedded Images 01/12/2025 2:54 PM T [facility] Pathology/Cytolo gy MASS / Unknown 01/09/2025 2:52 PM CDT 01/10/2025 9:05 AM CDT us James Jimenez MD LAB - PATHOLOGY/CYTOLOGY ORDERA BLES Final Result [facility] [address] [id number] from Last 3 Months Insurance MEDICARE [facility] MANAGED MEDICARE ADV Care Teams Wringer Machine Operator Relationship Specialty Start Date End Date Clotilde Webb MD [address] [place] [address] PCP - General Family Medicine 02/22/25
--- OUTSIDE RECORDS SUMMARY | 2025-02-24 02:09 | XMS_ITS | Clinical Summary ---
Author Organization [address] Address [address] [place] [phone] Care Team Providers Care Director Of Restaurants Name Role Phone Clotilde Webb MD Primary Care Provider [phone] Allergies Active Allergy Reactions Criticality Noted Date Comments Iodine Unknown 02/07/2025 Penicillins Rash Medium 12/26/2024 Medications valsartan-hydro CHLOROthiazide (DIOVAN-HCT) 160-12.5 mg per tablet Take 1 tablet by mouth daily 5 Active metoprolol tartrate (LOPRESSOR) 25 mg [...] LDL goal <70 02/20/2025 Essential hypertension 02/20/2025 Encounters Date Type Department Care Team Description 02/23/2025 Telephone [facility] Cardiology [address] [place] [address] [place] [phone] Fredi Olguin MD 02/20/2025 8:30 AM CDT Office Visit [facility] Cardiology at [address] [place] [address] Fredi Olguin MD Hyperlipidemia LDL goal <70 (Primary Dx); Abnormal stress test; Essential hypertension; Angina pectoris, unstable (HCC) 02/20/2025 Telephone [facility]iology [address] [place] [address] [place] [phone] Fredi Olguin MD 02/10/2025 Telephone [facility]iology [address] [place] [address] [place] [phone] Fredi Olguin MD from Last 3 Months Surgical History Surgery Date Site/Laterality Comments EAR SURGERY SKIN CANCER EXCISION Medical History Medical History Date Comments Cancer (HCC) Rheumatic fever in pediatric patient Hyperlipidemia Hypertension Family History Medical History Relation Name Comments Cancer Father Cancer Mother Relation Name Status Comments Father Mother Social History Tobacco Use Types Packs/Day Years Used Date Smoking Tobacco: Never Smokeless Tobacco: Never Tobacco Cessation:Counseling Given: Not Answered Sex and Gender Information Value Date Recorded Sex Assigned at Not on file Legal 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 Gender Identity Not on file Sexual Orientation Not on file Obstetrics History Last Filed Vital Signs Vital Sign Reading [...] 02/20/2025 8:20 AM CDT Plan of Treatment Health Maintenance Due Date Last Done Comments Depression Screening 1945 Fall Risk Assessment 1945 Hepatitis C Screening 1945 DTaP/Tdap/Td Vaccine (1 - Tdap) 1958 Hepatitis B Screening 1965 Pneumococcal vaccine 65+ (1 of 1 - PCV) 1997 Zoster Vaccine (1 of 2) 1997 Well Visit 65+ 2012 Influenza Vaccine (Season Ended) 2025 Procedures Procedure Name Priority Date/Time Associated Diagnosis Comments ELECTROCARDIOGRAM REPORT Routine 025 2:12 PM CDT Abnormal stress test POCT LIPID PANEL Routine 02/20/2025 8:28 AM CDT Hyperlipidemia LDL goal <70 from Last 3 Months Results * Electrocardiogram Report (02/20/2025 2:12 PM CDT) us Fredi Olguin MD ECG ORDERABLES Final Res [...] Capillary blood 02/20/2025 8 :28 AM CDT us Fredi Olguin MD POINT OF CARE TEST ORDERA BLES Final Result from Last 3 Months Insurance [facility] MEDICARE ADVANTAGE [facility] MEDICARE Address: [facility] [id number] [place] [phone] Care Teams Director Of Restaurants Relationship Specialty Start Date End Date Clotilde Webb MD [address] [place] [address] PCP - General Family Medicine 02/01/25
[2025-02-24 08:49] LABS: Basophils Percent Auto 0.1 % (0.2-1.2); Hematocrit 43.2 % (42.0-52.0); Hemoglobin 14.9 g/dL (14.0-18.0); Immature Granulocyte Absolute 0.04 K/mm3 (0.00-0.031); Immature Granulocyte Percent A 0.5 % (0-0.5); Lymphocytes Percent Auto 22.8 % (18.3-44.2); Mean Corpuscular HGB Conc 34.5 g/dl (32-36); Mean Corpuscular Hemoglobin 31.5 pg (26-34); Mean Corpuscular Volume 91.3 fl (80-100); Mean Platelet Volume 10.9 fl (7.4-10.4); Monocytes Absolute Auto 0.1 K/mm3 (0.1-0.6); Monocytes Percent Auto 0.9 % (2.6-8.5); Neutrophils Absolute Auto 5.7 K/mm3 (1.3-6.7); Neutrophils Percent Auto 75.7 % (45.5-73.1); Platelet Count Result 226 k/mm3 (150-375); Red Blood Count 4.73 M/mm3 (4.6-6.20); Red Cell Distribution Width 13.8 % (11.5-14.5); White Blood Count 7.5 K/mm3 (4.5-10.0)
--- NOTE | 2025-02-24 09:02 | WPDHPUPDATE1 ---
History and Physical Update Update Date/Time: 02/24/25 09:02 History and Physical has been reviewed, including an updated exam of the patient. There are NO changes in the patient's condition. Risks, benefits, and alternatives have been discussed and questions answered. Patient agrees to proceed with procedure.
--- NOTE | 2025-02-24 09:02 | WPDMODSED ---
Moderate Sedation Note-Pt Data Patient Data Allergies Allergy/AdvReac Type Severity Reaction Status Date / Time iodine Allergy Mild Rash Verified 02/03/25 10:32 penicillin G Allergy Mild Rash Verified 02/03/25 10:32 Penicillins Allergy Mild Rash Verified 02/03/25 10:32 escitalopram Allergy Unknown unknown Verified 02/03/25 10:32 lisinopril Allergy Unknown unknown Verified 02/03/25 10:32 Contrast Media Allergy Mild RASH/HOT Uncoded 02/03/25 10:32 Home Medications ?Medication ?Instructions ?Recorded ?Confirmed ?Type multivitamin 1 tablet PO DAILY 01/26/23 02/23/25 History shingrix vaccine #1 ea 02/19/24 02/03/25 Rx lorazepam 0.5 mg tablet 0.5 mg PO TID PRN anxiety #270 tabs 05/17/24 02/23/25 Rx sildenafil 100 mg tablet (Viagra) 100 mg PO DAILY PRN sexual 05/17/24 02/23/25 Rx activity #30 tabs probenecid 500 mg-colchicine 0.5 1 tablet PO .COMPLEX #180 tabs 07/03/24 02/23/25 Rx mg tablet allopurinol 300 mg tablet 300 mg PO DAILY #90 tabs 07/25/24 02/23/25 Rx valsartan 160 1 tablet PO DAILY #90 tabs 07/25/24 02/23/25 Rx mg-hydrochlorothiazide 12.5 mg tablet (Diovan HCT) zolpidem 10 mg tablet 10 mg PO .once daily at hs PRN 09/21/24 02/23/25 Rx insomnia #90 tabs metoprolol tartrate 25 mg tablet 25 mg PO .HS #90 tabs 10/28/24 02/23/25 Rx aspirin 325 mg tablet 325 mg PO DAILY 02/23/25 02/23/25 History atorvastatin 40 mg tablet 40 mg PO QPM 02/23/25 02/23/25 History naproxen sodium 220 mg capsule 220 mg PO BID PRN pain 02/23/25 02/23/25 History (Aleve) Sedation/Anesthesia: No previous sedation/anesthesia problems (including family history). FOR[facility]LY [facility] Past Medical History Medical History Erectile dysfunction Insomnia Anxiety H/O: gout HLD (hyperlipidemia) Kidney stone HTN (hypertension) Family History Family History Mother Family history of neuropathy Social History Social History Smoking status: Never smoker Second hand tobacco smoke exposure: No Alcohol intake: never Substance use: never Substance use type: does not use Lack of Transportation: No Lack of Food: Never True Current Housing: I Have Housing Concerned About Future Housing: No Difficulty Paying Gas/Electric Bills: No Difficulty Paying for Meds: No Currently Unemployed: No Education: High School Diploma/GED Difficulty w/ Childcare or Family Care: No Living arrangements: with family Occupation/Education: retired Gender identity (if verbalized by the patient): Male Sexual Orientation (if Verbalized by the Patient): Straight or Heterosexual Spiritual care concerns: No Agree to blood products: Yes Mod Sed Physical Exam Physical Exam Pre Procedural Exam: Normal: Lungs, Heart Rate and Heart Rhythm Hours since solid foods: 12 Hours since liquid intake: 12 Mallampati Classification: class II Internal Medicine - PN: Obj Da Vital Signs Vital Signs: Vital Signs - 24 hr 02/24/25 08:30 Temperature 36.1 C L Pulse Rate 74 Respiratory Rate 14 Blood Pressure 169/80 H Pulse Oximetry 97 Oxygen Delivery Room Air Intake/Output Intake/Output: Intake & Output 02/21/25 02/22/25 02/23/25 02/24/25 23:59 23:59 23:59 23:59 Output Total 0 Balance 0 Labs 02/24/25 08:37 02/24/25 08:37 Labs: Laboratory Results - last 24 hr 02/24/25 08:37 WBC 7.5 RBC 4.73 Hgb 14.9 Hct 43.2 MCV 91.3 MCH 31.5 MCHC 34.5 RDW 13.8 Plt Count 226 MPV 10.9 H Immature Gran % (Auto) 0.5 Neut % (Auto) 75.7 H Lymph % (Auto) 22.8 [place] % (Auto) 0.9 L Eos % (Auto) 0.0 Baso % (Auto) 0.1 L Lymph # (Auto) 1.70 [place] # (Auto) 0.1 Eos # (Auto) 0.0 Baso # (Auto) 0.0 Abs Immat Gran (auto) 0.04 H Absolute Neuts (auto) 5.7 Absolute Nucleated RBC 0.000 Nucleated RBC % 0.0 ASA Classification/Sedation ASA Classification/Sedation ASA Class: III Emergent: No Risks: Risks, benefits and alternatives explained and patient/family accepted plan for sedation. Patient re-evaluated immediately prior to sedation.
[2025-02-24 09:05] LABS: Anion Gap 12 mmol/L (4-12); Blood Urea Nitrogen 19 mg/dL (9-20); Calcium 9.6 mg/dL (8.4-10.2); Carbon Dioxide 23 mmol/L (22-30); Chloride 104 mmol/L (98-107); Estimated CRCL calculation 52 ml/min; Estimated Glomerular Filt Rate > 60; Glucose 159 mg/dL (65-110); Potassium 3.9 mmol/L (3.4-5.0); Sodium 139 mmol/L (137-145)
--- NOTE | 2025-02-24 10:44 | WPDCARDPROC ---
Cardiac Cath Procedure Note Date of procedure:: 02/24/25 Performing physician:: CATHETERIZATION LABORATORY REPORT Procedure Date:02/24/2025 Referring Physician: Dr. Olguin Anesthesia: Versed and Fentanyl were ordered and given in my presence at 0936, procedure ended at 1008. Supervision of nurse, Leah Galaviz monitored moderate sedation with 2mg Versed and 100mcg Fentanyl was provided for 32 minutes. Pre-op Diagnosis: Abnormal nuclear stress test Post-op Diagnosis: Abnormal nuclear stress test Procedure(s): Left heart catheterization with coronary angiography Access Site: Right radial artery Brief History and Clinical Indications: 79-year-old man with hypertension and hyperlipidemia has been having intermittent and short episodes of chest discomfort found to have a abnormal nuclear stress test for which she is now here for cardiac catheterization with possible PCI. All risks, benefits and alternatives to left heart catheterization with or without percutaneous coronary intervention was discussed at length with the patient. Risk of complications including but not limited to bleeding, infection, arrhythmia, stroke, worsening kidney function, blood loss, groin hematoma, limb loss, emergency coronary artery bypass grafting, and even were discussed with the patient and all questions were answered. The patient understood and wished to proceed. Time out called, patient name, date of , medical record number, allergies, procedure performed, identify Medical Assistant Instructor, patient and staff member concurred with accurate data, procedure carried on. Findings: LEFT HEART CATHETERIZATION FINDINGS: 1. Left main: The left main coronary artery has calcification at its ostium with no more than 10% stenosis. 2. Left anterior descending: The LAD provides 3 small diagonal branches. The LAD in its midbody has an area of myocardial bridging with no more than 30-40% stenosis. 3. Left circumflex: The left circumflex artery and the main marginal branches have diffuse 10-20% stenosis. 4. Right coronary artery: The RCA is a large dominant vessel that is calcified at its ostium involving the aortic root with no a 10% stenosis. The proximal body of the RCA has a 99% heavily/severely calcified and quite possibly coronary calcium nodule stenosis. There is still AHSAN 3 flow until the distal RCA where there appears to be competitive flow involving the right PDA as well as the right PL branch from collaterals supplied by the left coronary system. 5. Left ventricle: A. End-diastolic pressure 15 mmHg. B. LV gram deferred. C. No significant gradient across aortic valve on catheter pullback. 6. Opening AO pressure 120/64 and closing AO pressure 120/61 7. Right iliofemoral angiogram: The visualized portions of right external iliac artery and right superficial femoral artery are angiographically normal. The right common femoral artery has 10-20% stenosis. Description of Procedure: Informed consent signed and placed in the chart. Patient transferred to brine room laborer room. Prepped and draped in usual sterile fashion. 2% lidocaine injected subcutaneously in right wrist area. 22-gauge venipuncture catheter used to access the right radial artery under ultrasound guidance with the Seldinger technique. 6-FR slender sheath placed in right radial artery. Nitroglycerin 200mcg, Verapamil 2.5mg, and Heparin 5000U was given intraarterial through the sheath. J wire was unable to be advanced past the elbow area likely secondary to significant tortuosity at which point procedure was converted to femoral approach. 2% lidocaine was injected subcutaneously into the right groin. Under ultrasound guidance, micropuncture access needle was advanced into the right common femoral artery and the micro puncture sheath was placed under ultrasound and fluoroscopy guidance and eventually exchanged out for a 5 [place] prelude sheath. 5F JL4 diagnostic catheter engaged Left Main Coronary Artery. 5F JR4 diagnostic catheter engaged Right Coronary Artery Multiple orthogonal angiogram obtained and reviewed 5F JR4 diagnostic catheter crossed aortic valve to obtain LVEDP, LV angiogram deferred. Hemostasis was achieved by application of TR band and Angio-Seal. 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 Post Operative Condition: Stable No significant blood loss Disposition: Home Plan: Given the presence of collaterals, the proximal RCA disease was not intervened on and would recommend medical management. Should symptoms not be controlled on medical management, we can discuss CSI atherectomy and shockwave assisted PCI to the proximal RCA. Lalo He Interventional Cardiology
[2025-02-24] MEDS: SODIUM CHLORIDE 0.9% IV 1,000 ML 125 ML IV CONT (10:45)
== END 2025-02-24 15:27 | disposition home or self-care (01) ==
PROVIDERS: PCP Family Medicine; Visit Provider Internal Medicine
PROC: 4A023N7 Measurement of Cardiac Sampling and Pressure, Left Heart, Percutaneous Approach (ICD-10-PCS; CPT 93452; principal; 2025-02-24 10:00)
PROC: (CPT 36140; 2025-02-24 10:00)
DX: I25.10 Atherosclerotic heart disease of native coronary artery without angina pectoris (principal); I70.8 Atherosclerosis of other arteries; E78.5 Hyperlipidemia, unspecified; I10 Essential (primary) hypertension; N52.9 Male erectile dysfunction, unspecified; G47.00 Insomnia, unspecified; F41.9 Anxiety disorder, unspecified; Z79.82 Long term (current) use of aspirin; Z79.1 Long term (current) use of non-steroidal anti-inflammatories (NSAID); Z87.442 Personal history of urinary calculi; Z85.9 Personal history of malignant neoplasm, unspecified; Z80.9 Family history of malignant neoplasm, unspecified
CPT/HCPCS: 36140; 36415; 80048; 85025; 93458; C1760; C1769; C1887; C1894; G0269; J1644; J2003; J2250; J2305; J3010; J7030; J7040